=== PATIENT | male | born 1965 | race African-American/Black ===

== ENCOUNTER 2019-10-20 14:52 | Emergency (ER) | payer BC ==
[2019-10-20] MEDS ORDERED: LIDOCAINE 1% MPF 5 ML VIAL ONE (15:18)
[2019-10-20] MEDS ORDERED: BUPIVACAINE 0.5% PF 10 ML VIAL ONE (15:19)
[2019-10-20] MEDS ORDERED: TETANUS & DIPHTHERIA TOX,ADULT 0.5 ML VIAL ONE (15:19)
--- NOTE | 2019-10-20 16:07 | EDPHYS ---
Physician Documentation [facility] Name: Sae Montoya Age: 54 yrs Sex: Male : 1965 Arrival Date: 10/20/2019 Time: 14:53 Bed 23 Private MD: Daniel Callahan F ED Physician Bk Arnold HPI: 10/20 15:50 This 54 yrs old Black Male presents to ER via Ambulatory with complaints of Laceration pm1 To Leg. 15:50 The patient has a laceration related to: Walking up stairs and foot broke through a pm1 step and cut his left parsons occurred On staircase, and there are no complicating factors. The laceration(s) is(are) located on the left parsons. Onset: The symptoms/episode began/occurred just prior to arrival. Associated signs and symptoms: Pertinent negatives: deformity, numbness distal to injury, suspected foreign body. The patient has not experienced similar symptoms in the past. The patient has not recently seen a physician. Historical: - Allergies: 15:13 No Known Allergies; em - PMHx: 15:13 Hypertension; Hyperlipidemia; em - PSHx: 15:13 None; em - Immunization history:: Last tetanus immunization: not immunized. - Social history:: Smoking status: Patient/guardian denies using tobacco. - Ebola Screening: : Patient negative for fever greater than or equal to 101.5 degrees Fahrenheit, and additional compatible Ebola Virus Disease symptoms Patient denies exposure to infectious person Patient denies travel to an Ebola-affected area in the 21 days before illness onset No symptoms or risks identified at this time. ROS: 15:50 Constitutional: Negative for fever, chills, and weight loss, Cardiovascular: Negative pm1 for chest pain, palpitations, and edema, Respiratory: Negative for shortness of breath, cough, wheezing, and pleuritic chest pain, Abdomen/GI: Negative for abdominal pain, nausea, vomiting, diarrhea, and constipation. 15:50 Back: Negative for injury and pain, Neuro: Negative for headache, weakness, numbness, tingling, and seizure. 15:50 MS/extremity: Positive for laceration, of the left parsons, Negative for decreased range of motion, deformity. 15:50 Skin: Positive for laceration(s), of the left parsons. 15:50 All other systems are negative. Exam: 15:50 Constitutional: This is a well developed, well nourished patient who is awake, alert, pm1 and in no acute distress. Head/Face: Normocephalic, atraumatic. Chest/axilla: Normal chest wall appearance and motion. Nontender with no deformity. No lesions are appreciated. Cardiovascular: Regular rate and rhythm with a normal S1 and S2. No gallops, murmurs, or rubs. Normal PMI, no JVD. No pulse deficits. Respiratory: Lungs have equal breath sounds bilaterally, clear to auscultation and percussion. No rales, rhonchi or wheezes noted. No increased work of breathing, no retractions or nasal flaring. Back: No spinal tenderness. No costovertebral tenderness. Full range of motion. 15:50 Skin: Appearance: normal except for affected area, injury, laceration(s), of the left parsons, that can be described as clean, no foreign body, irregular, with mild bleeding. Vital Signs: 15:13 BP 131 / 73; Pulse 80; Resp 18; Temp 98.1(O); Pulse Ox 97% on R/A; Weight 124.74 kg; em Height 5 ft. 10 in. (177.80 cm); Pain 3/10; 15:13 Body Mass Index 39.46 (124.74 kg, 177.80 cm) em Laceration: 20:22 Wound Repair of 9cm ( 3.5in ) subcutaneous laceration to left parsons. Irregularly pm1 shaped.. Distal neuro/vascular/tendon intact. Anesthesia: Local anesthetic administered with 5 mls of Lido/Marcaine. Wound prep: Extensive cleansing with hibiclenz by me, Wound irrigation with saline by me, Wound explored extensively, Copious irrigation. Skin closed with 11 1-0 Filiberto using staple gun. Dressed with Neosporin, 4x4's. Patient tolerated well. MDM: 14:56 Patient medically screened. pm1 16:03 Data reviewed: vital signs. Data interpreted: Pulse oximetry: on room air is 97 %. pm1 Interpretation: normal. Counseling: I had a detailed discussion with the patient and/or guardian regarding: the historical points, exam findings, and any diagnostic results supporting the discharge/admit diagnosis, the need for outpatient follow up, staple removal in 10-14 days, to return to the emergency department if symptoms worsen or persist or if there are any questions or concerns that arise at home. 10/20 15:02 Order name: Wound Care; Complete Time: 16:13 pm1 Administered Medications: 15:19 Drug: Tetanus-Diphtheria Toxoid Adult 0.5 ml {Window Glass Installer: [employer]. Exp: ca1 09/15/2021. Lot #: [id number]. } Route: IM; Site: right deltoid; 15:50 Follow up: Response: No adverse reaction em 15:50 Drug: Lidocaine (1 %) 5 ml {Note: administered by ETHEL Bowden.} Volume: 5 ml; Route: em Infiltration; Site: wound; 16:13 Follow up: Response: No adverse reaction; Marked relief of symptoms; Pain is decreased em 15:50 Drug: Marcaine (0.5 %) 10 ml {Note: administered by ETHEL Bowden.} Volume: 10 ml; Route: em Infiltration; Site: wound; 16:14 Follow up: Response: No adverse reaction; Marked relief of symptoms; Pain is decreased em Disposition: 10/20/19 16:04 Discharged to Home. Impression: Laceration without foreign body, left lower leg. - Condition is Stable. - Discharge Instructions: Laceration Care, Adult. - Prescriptions for Keflex 500 mg Oral Capsule - take 1 capsule by ORAL route every 12 hours for 10 days; 20 capsule. Tramadol 50 mg Oral Tablet - take 1 tablet by ORAL route every 8 hours as needed; 12 tablet. - Medication Reconciliation Form, Thank You Letter, Antibiotic Education, Prescription Opioid Use form. - Follow up: Emergency Department; When: As needed; Reason: Worsening of condition. Follow up: Private Physician; When: 10 - 14 days; Reason: Wound Recheck, Recheck today's complaints, Continuance of care, Staple/Suture removal, Re-evaluation by your physician. - Problem is new. - Symptoms have improved. Addendum: 10/23/2019 07:00 Co-signature as Attending Physician, Bk Arnold MD I agree with the assessment and k dr plan of care. PA/TELECOMMUNICATIONS FACILITY EXAMINER's history reviewed, patient interviewed, and examined. Signatures: Bk Arnold MD MD [facility] Angel Guidry, TERRAZZO ROLLER TERRAZZO ROLLER em Kal Lowry NP TELECOMMUNICATIONS FACILITY EXAMINER pm1 Tamy Pitts RN RN ca1 Corrections: (The following items were deleted from the chart) 10/20 16:17 16:04 10/20/2019 16:04 Discharged to Home. Impression: Laceration without foreign body, em left lower leg. Condition is Stable. Forms are Medication Reconciliation Form, Thank You Letter, Antibiotic Education, Prescription Opioid Use. Follow up: Emergency Department; When: As needed; Reason: Worsening of condition. Follow up: Private Physician; When: 10 - 14 days; Reason: Wound Recheck, Recheck today's complaints, Continuance of care, Staple/Suture removal, Re-evaluation by your physician. Problem is new. Symptoms have improved. pm1
--- NOTE | 2019-10-20 16:07 | ER ---
Nurse's Notes [facility] Name: Sae Montoya Age: 54 yrs Sex: Male : 1965 Arrival Date: 10/20/2019 Time: 14:53 Bed 23 Private MD: Daniel Callahan F Diagnosis: Laceration without foreign body, left lower leg Presentation: 10/20 15:11 Presenting complaint: Patient states: was stepping on a trailer step and broke off, em laceration to left parsons about 3 inches long. Transition of care: patient was not received from another setting of care. Complicating Factors: There are no complicating factors for this patient. Onset of symptoms was October 20, 2019 at 14:45. Risk Assessment: Do you want to hurt yourself or someone else? Patient reports no desire to harm self or others. Initial Sepsis Screen: Does the patient meet any 2 criteria? No. Patient's initial sepsis screen is negative. Does the patient have a suspected source of infection? Yes: Skin breakdown/wound. Care prior to arrival: None. 15:11 Method Of Arrival: Ambulatory em 15:16 Acuity: FRED 4 iw Historical: - Allergies: 15:13 No Known Allergies; em - PMHx: 15:13 Hypertension; Hyperlipidemia; em - PSHx: 15:13 None; em - Immunization history:: Last tetanus immunization: not immunized. - Social history:: Smoking status: Patient/guardian denies using tobacco. - Ebola Screening: : Patient negative for fever greater than or equal to 101.5 degrees Fahrenheit, and additional compatible Ebola Virus Disease symptoms Patient denies exposure to infectious person Patient denies travel to an Ebola-affected area in the 21 days before illness onset No symptoms or risks identified at this time. Screenin:14 Abuse screen: Denies threats or abuse. Nutritional screening: No deficits noted. em Tuberculosis screening: No symptoms or risk factors identified. Fall Risk None identified. Assessment: 15:20 General: Appears in no apparent distress. comfortable, Behavior is calm, cooperative, em appropriate for age. Pain: Complains of pain in left parsons Pain currently is 3 out of 10 on a pain scale. Neuro: Level of Consciousness is awake, alert, obeys commands, Oriented to person, place, time, situation, Appropriate for age. Cardiovascular: Capillary refill < 3 seconds Patient's skin is warm and dry. Respiratory: Airway is patent Respiratory effort is even, unlabored, Respiratory pattern is regular, symmetrical. Derm: Skin is intact, is healthy with good turgor, Skin is pink, warm \T\ dry. Musculoskeletal: Capillary refill < 3 seconds, Range of motion: intact in all extremities. Injury Description: Laceration sustained to left parsons is clean, 2.6 to 7.5 cm long, not bleeding, was sustained 30-60 minutes ago. Vital Signs: 15:13 BP 131 / 73; Pulse 80; Resp 18; Temp 98.1(O); Pulse Ox 97% on R/A; Weight 124.74 kg; em Height 5 ft. 10 in. (177.80 cm); Pain 3/10; 15:13 Body Mass Index 39.46 (124.74 kg, 177.80 cm) em ED Course: 14:53 Patient arrived in ED. mr 14:54 Daniel Callahan MD is Private Physician. mr 14:56 Kal Lowry [facility]. pm1 14:56 Bk Arnold MD is Attending Physician. pm1 15:00 Angel Guidry LVN is Primary Nurse. em 15:13 Arm band placed on. em 15:14 Patient has correct armband on for positive identification. Bed in low position. Call em light in reach. Pulse ox on. NIBP on. 15:16 Triage completed. iw 16:00 Assist provider with laceration repair on left parsons that was between 2.6 to 7.5 cm em using deedee. Set up tray. Performed by Kal Lowry [employer]AREERS INSTRUCTOR Dressed with 4X4s, Neosporin, melita wrap. 16:16 Patient did not have IV access during this emergency room visit. em Administered Medications: 15:19 Drug: Tetanus-Diphtheria Toxoid Adult 0.5 ml {Pantry Attendant: [employer]. Exp: ca1 09/15/2021. Lot #: [id number]. } Route: IM; Site: right deltoid; 15:50 Follow up: Response: No adverse reaction em 15:50 Drug: Lidocaine (1 %) 5 ml {Note: administered by ETHEL Bowden.} Volume: 5 ml; Route: em Infiltration; Site: wound; 16:13 Follow up: Response: No adverse reaction; Marked relief of symptoms; Pain is decreased em 15:50 Drug: Marcaine (0.5 %) 10 ml {Note: administered by ETHEL Bowden.} Volume: 10 ml; Route: em Infiltration; Site: wound; 16:14 Follow up: Response: No adverse reaction; Marked relief of symptoms; Pain is decreased em Outcome: 16:04 Discharge ordered by MD. pm1 16:14 Discharged to home ambulatory, with family. em 16:14 Condition: good 16:14 Discharge instructions given to patient, family, Instructed on discharge instructions, follow up and referral plans. medication usage, Demonstrated understanding of instructions, follow-up care, medications, Prescriptions given X 2. 16:17 Patient left the ED. em Signatures: Catherine Grover mr Guidry, Angel, SPRINKLER IRRIGATION EQUIPMENT MECHANIC SPRINKLER IRRIGATION EQUIPMENT MECHANIC em Sunita Ochoa RN RN iw Kal Lowry NP [employer]ERS INSTRUCTOR pm1 Tamy Pitts RN RN ca1 Corrections: (The following items were deleted from the chart) 16:02 15:11 Presenting complaint: Patient states: was stepping on a trailer step and broke em off, laceration to right parsons about 3 inches long em 16:03 15:20 Pain: Complains of pain in right parsons Pain currently is 3 out of 10 on a pain em scale. em 16:03 15:20 Injury Description: Laceration sustained to right parsons is clean, 2.6 to 7.5 cm em long, not bleeding, was sustained 30-60 minutes ago. em
[2019-10-20 17:48] VITALS: BP 131/73; TEMP 98.1; O2SAT 97
== END 2019-10-20 16:17 | disposition home or self-care (01) ==
LOC: ER 14:52
PROC: 0JQP0ZZ Repair Left Lower Leg Subcutaneous Tissue and Fascia, Open Approach (ICD-10-PCS; principal; 2019-10-20)
DX: S81.812A Laceration without foreign body, left lower leg, initial encounter (principal); W45.8XXA Other foreign body or object entering through skin, initial encounter; Y93.01 Activity, walking, marching and hiking; Y92.89 Other specified places as the place of occurrence of the external cause; Z23 Encounter for immunization; I10 Essential (primary) hypertension
CPT/HCPCS: 90471; 90714; 99284

== ENCOUNTER 2019-11-09 04:27 | Emergency (ER) | payer BC ==
--- NOTE | 2019-11-09 04:40 | ER ---
Nurse's Notes [facility] Name: Sae Montoya Age: 54 yrs Sex: Male : 1965 Arrival Date: 11/09/2019 Time: 04:30 Bed 7 Private MD: Diagnosis: Encounter for change or removal of surgical wound dressing Presentation: 11/09 04:37 Presenting complaint: Patient states: "I received deedee over two weeks ago and need vc them removed.". Transition of care: patient was not received from another setting of care. Onset of symptoms was November 09, 2019. Risk Assessment: Do you want to hurt yourself or someone else? Patient reports no desire to harm self or others. Initial Sepsis Screen: Does the patient meet any 2 criteria? No. Patient's initial sepsis screen is negative. Does the patient have a suspected source of infection? No. Patient's initial sepsis screen is negative. Care prior to arrival: None. 04:37 Method Of Arrival: Ambulatory vc 04:37 Acuity: FRED 5 vc Triage Assessment: 04:30 General: Appears in no apparent distress. Behavior is calm, cooperative. Pain: Denies vc pain. Historical: - Allergies: 04:40 No Known Allergies; vc - PMHx: 04:40 Hypertension; Hyperlipidemia; vc - PSHx: 04:40 None; vc - Immunization history:: Adult Immunizations up to date. - Social history:: Smoking status: Patient denies any tobacco usage or history of. - Ebola Screening: : No symptoms or risks identified at this time. Screenin:30 Abuse screen: Denies threats or abuse. Nutritional screening: On. Tuberculosis vc screening: No symptoms or risk factors identified. Fall Risk None identified. Assessment: 04:30 General: Appears in no apparent distress. comfortable, Behavior is calm, cooperative. vc Pain: Denies pain. Neuro: Level of Consciousness is awake, alert, obeys commands, Oriented to person, place, time, situation. Cardiovascular: Patient's skin is warm and dry. Respiratory: Respiratory effort is even, unlabored. GI: No signs and/or symptoms were reported involving the gastrointestinal system. : No signs and/or symptoms were reported regarding the genitourinary system. EENT: No signs and/or symptoms were reported regarding the EENT system. Derm: [place] noted to left anterior parsons area. Musculoskeletal: Circulation, motion, and sensation intact. Range of motion: intact in all extremities. Vital Signs: 04:38 BP 138 / 85; Pulse 65; Resp 18; Temp 97.4; Pulse Ox 96% on R/A; vc ED Course: 04:30 Patient arrived in ED. ag3 04:30 Arm band placed on. vc 04:30 Patient has correct armband on for positive identification. vc 04:32 Moon Martinez, RN is Primary Nurse. vc 04:37 Robert Darby MD is Attending Physician. tw4 04:38 Triage completed. vc 04:41 staple removal. Patient did not have IV access during this emergency room visit. vc Administered Medications: No medications were administered Outcome: 04:39 Discharge ordered by . tw4 04:44 Discharged to home vc 04:44 Condition: good 04:44 Instructed on discharge instructions, Demonstrated understanding of instructions. 04:45 Patient left the ED. vc Signatures: Robert Darby MD MD 4 Laura Lou ag3 Moon Martinez RN RN vc Corrections: (The following items were deleted from the chart) 04:47 04:45 Arm band placed on vc vc 04:48 04:37 General: vc vc
[2019-11-09 06:34] VITALS: BP 138/85; TEMP 97.4; O2SAT 96
--- NOTE | 2019-11-15 06:11 | EDPHYS ---
Physician Documentation [facility] Name: Sae Montoya Age: 54 yrs Sex: Male : 1965 Arrival Date: 11/09/2019 Time: 04:30 Bed 7 Private MD: ED Physician Robert Darby Historical: - Allergies: 11/09 04:40 No Known Allergies; vc - PMHx: 04:40 Hypertension; Hyperlipidemia; vc - PSHx: 04:40 None; vc - Immunization history:: Adult Immunizations up to date. - Social history:: Smoking status: Patient denies any tobacco usage or history of. - Ebola Screening: : No symptoms or risks identified at this time. Vital Signs: 04:38 BP 138 / 85; Pulse 65; Resp 18; Temp 97.4; Pulse Ox 96% on R/A; vc MDM: 04:37 Patient medically screened. tw4 Administered Medications: No medications were administered Disposition: 11/09/19 04:39 Discharged to Home. Impression: Encounter for change or removal of surgical wound dressing. - Condition is Stable. - Discharge Instructions: Wound Check, Wound Care. - Medication Reconciliation Form, Thank You Letter, Antibiotic Education, Prescription Opioid Use form. - Follow up: Private Physician; When: Upon discharge from the Emergency Department; Reason: Recheck today's complaints, Continuance of care. - Problem is new. - Symptoms have improved. Addendum: 11/15/2019 05:56 Addendum: HPI: Pt is a 54 year old male that presents to the ED for staple removal. Pt t w4 state that injured occurred to his right leg over 2 weeks ago. Pt has no complaints regarding the wound.. Addendum: ROS: Ext: positive for healing laceration. negative for erythema, decreased ROM , tenderness, swelling All others systems negative. Addendum: Exam: Gen: Well developed well nourished male in NAD, Ext: lower right leg reveals 8cm wound healing with deedee in place no evidence of infection . 06:11 Addendum: ED course: 11 deedee removed by me. Pt tolerated procedure well. t w4 Signatures: Robert Darby MD MD tw4 Moon Martinez, RN RN vc Corrections: (The following items were deleted from the chart) 11/09 04:45 04:39 11/09/2019 04:39 Discharged to Home. Impression: Encounter for change or removal vc of surgical wound dressing. Condition is Stable. Forms are Medication Reconciliation Form, Thank You Letter, Antibiotic Education, Prescription Opioid Use. Follow up: Private Physician; When: Upon discharge from the Emergency Department; Reason: Recheck today's complaints, Continuance of care. Problem is new. Symptoms have improved. tw4
== END 2019-11-09 04:45 | disposition home or self-care (01) ==
LOC: ER 04:27
DX: Z48.02 Encounter for removal of sutures (principal)
CPT/HCPCS: 99281